=== PATIENT | female | born 1975 ===

== ENCOUNTER → 2022-08-07 10:34 | Outpatient (CLI) | payer OTHER | END | disposition home or self-care (01) | LOC: LAB 10:34 | PROVIDERS: ATTEND Obstetrics & Gynecology | DX: Z20.828 Contact with and (suspected) exposure to other viral communicable diseases (principal); Z20.818 Contact with and (suspected) exposure to other bacterial communicable diseases ==

== ENCOUNTER 2024-02-19 13:28 | Outpatient (CLI) | payer OTHER | END 2024-02-19 13:35 | disposition home or self-care (01) | LOC: SONOGRAMA 13:28 | PROVIDERS: ATTEND Internal Medicine | DX: N93.9 Abnormal uterine and vaginal bleeding, unspecified (principal); E78.00 Pure hypercholesterolemia, unspecified; E04.1 Nontoxic single thyroid nodule; D25.9 Leiomyoma of uterus, unspecified; D50.9 Iron deficiency anemia, unspecified; E55.9 Vitamin D deficiency, unspecified; E03.9 Hypothyroidism, unspecified ==

== ENCOUNTER 2024-12-27 10:04 | Outpatient (CLI) | payer OTHER | END 2024-12-27 10:06 | disposition home or self-care (01) | LOC: MRI 10:04 | DX: R10.2 Pelvic and perineal pain (principal); D25.0 Submucous leiomyoma of uterus | CPT/HCPCS: 72196 ==

== ENCOUNTER 2025-01-26 09:00 | Inpatient (IN) | payer OTHER ==
[2025-01-19 09:42] VITALS: BP 150/85
[2025-01-19 10:01] LABS: BASO % 1.4 % (0.1-1.2); EOS # 0.06 (0.04-0.54); EOS % 1.1 % (0.7-7.0); LYMPH # 1.38 (1.18-3.74); LYMPH % 25.0 % (19.3-53.1); MONO # 0.40 (0.24-0.82); MONO % 7.2 % (4.7-12.5); NEUT # 3.60 (1.56-6.13); NEUT % 65.1 % (34.0-71.1); RED CELL DISTRIBUTION WIDTH 18.6 % (11.6-14.4)
[2025-01-19 10:06] LABS: URINE APPEARANCE Clear; URINE BILIRRUBIN Negative (NEGATIVE); URINE BLOOD Negative; URINE COLOR Yellow; URINE GLUCOSE Negative (NEGATIVE); URINE KETONE Negative (NEGATIVE); URINE LEUKOCYTE Trace; URINE NITRATE Negative; URINE PROTEIN 30 (NEGATIVE); URINE UROBILINOGEN 0.2 E.U./dl
[2025-01-19 10:09] LABS: URINE BACTERIA 72.0 uL (0.0-1933); URINE EPITHELIAL CELLS 17.1 uL (0.0-38.8); URINE RBC 37.5 uL (0.0-20.8); URINE WBC 8.9 uL (0.0-23.2)
[2025-01-19 10:12] LABS: URINE CAST 0.58 uL (0.0-1.40)
[2025-01-19 10:28] LABS: INR 0.98
[2025-01-19 10:33] LABS: ALT/SGPT 21.0 U/L (12-78); AST/SGOT 17.0 U/L (15-37); BILIRUBIN TOTAL 0.34 mg/dL (0.3-1.2); BUN CREA RATIO 16.0 (7.0-25.0); CREATININE SERUM 0.63 mg/dL (0.55-1.02); GFR 100.44; GLOBULINA 3.7 G/DL (2.4-3.5); GLUCOSE FASTING 109.0 mg/dL (65-100); OSMOLALITY SERUM 279.0 MOSM/KG (275-295)
[2025-01-19 10:53] LABS: COVID-19 AG NEGATIVE (NEGATIVE)
[~2025-01-26] VITALS: Ht 157.5 cm; Wt 68.5 kg
[~2025-01-26 09:00] MED LIST: SYNTHROID50 MCG PO
[2025-01-26] MEDS ORDERED: CEFAZOLIN SODIUM 1,000 MG VIAL ONE (10:42)
[2025-01-26] MEDS ORDERED: POVIDONE-IODINE 118 ML BOTT TOP ONE (11:05)
[2025-01-26] MEDS ORDERED: SUGAMMADEX SODIUM 200 MG/2 ML VIAL IV ONE (14:37)
[2025-01-26] MEDS ORDERED: MORPHINE SULFATE 4 MG/ML CARTRIDGE IV PRN (15:45)
[2025-01-26] MEDS ORDERED: SIMETHICONE 125 MG CAPSULE PO SCH (17:00)
[2025-01-26] MEDS ORDERED: KETOROLAC TROMETHAMINE 30 MG VIAL IV SCH (18:00)
[2025-01-26 19:05] VITALS: BP 143/77
[2025-01-27 00:41] VITALS: BP 148/74
[2025-01-27 06:48] LABS: BASO % 0.2 % (0.1-1.2); EOS # 0.00 (0.04-0.54); EOS % 0.0 % (0.7-7.0); LYMPH # 0.69 (1.18-3.74); LYMPH % 5.5 % (19.3-53.1); MONO # 0.62 (0.24-0.82); MONO % 4.9 % (4.7-12.5); NEUT # 11.17 (1.56-6.13); NEUT % 89.1 % (34.0-71.1); RED CELL DISTRIBUTION WIDTH 18.3 % (11.6-14.4)
[2025-01-27 07:10] LABS: ALT/SGPT 19.0 U/L (12-78); AST/SGOT 19.0 U/L (15-37); BILIRUBIN TOTAL 0.45 mg/dL (0.3-1.2); BUN CREA RATIO 12.0 (7.0-25.0); CREATININE SERUM 0.58 mg/dL (0.55-1.02); GFR 110.49; GLOBULINA 3.3 G/DL (2.4-3.5); GLUCOSE FASTING 130.0 mg/dL (65-100); OSMOLALITY SERUM 275.0 MOSM/KG (275-295)
[2025-01-27 08:52] VITALS: BP 140/73
[2025-01-27] MEDS ORDERED: ACETAMINOPHEN 500 MG GEL..CAP PO SCH (12:00)
[2025-01-27 18:42] VITALS: BP 128/60
[2025-01-28 00:41] VITALS: BP 135/74
[2025-01-28 08:00] VITALS: BP 145/69
== END 2025-01-28 12:33 | disposition home or self-care (01) | DRG 743 ==
LOC: CIR.AMB 09:00 → OB/GYN 16:07
PROVIDERS: Obstetrics & Gynecology; ADMIT Obstetrics & Gynecology Gynecology; ATTEND Obstetrics & Gynecology Gynecology
PROC: 0UT74ZZ Resection of Bilateral Fallopian Tubes, Percutaneous Endoscopic Approach (ICD-10-PCS; 2025-01-26)
PROC: 0UT94ZZ Resection of Uterus, Percutaneous Endoscopic Approach (ICD-10-PCS; principal; 2025-01-26 11:25)
DX: D25.1 Intramural leiomyoma of uterus (principal)